=== PATIENT | male | born 1940 | race Caucasian/White ===

== ENCOUNTER → 2020-02-18 13:11 | Outpatient (CLI) | payer OTHER, SELFPAY ==
--- NOTE | 2020-02-18 | DI.CT.S_ITS ---
PROCEDURE: CT ABDOMEN PELVIS WO/W CON INDICATIONS: Retention of urine, unspecified TECHNIQUE: Optional 5 mm thick noncontrast images acquired from the diaphragm to the symphysis pubis. After the administration of intravenous contrast, 5 mm thick images acquired from the diaphragm to the symphysis pubis after a 10-minute delay. 2 mm thick coronal and sagittal reformats were then performed of the kidneys and ureters. For radiation dose reduction, the following was used: automated exposure control, adjustment of mA and/or kV according to patient size. COMPARISON: None. FINDINGS: Image quality: Excellent. Lung bases: Lung bases are clear. Heart size is normal. Urinary system: Both kidneys are normal in size, without hydronephrosis or nephrolithiasis on pre-contrast images. No perinephric fat stranding. There is normal bilateral renal enhancement. Renal calyces appear normal in morphology when filled with contrast. Opacified portions of both ureters demonstrate normal caliber. Bladder wall thickness is normal. No calcified bladder stones. Other solid organs: Liver is normal in size and enhancement. Gallbladder appears normal . Biliary system is non dilated. Pancreas enhances normally. Spleen is normal in size and enhancement. No adrenal nodules. Peritoneum and bowel: Bowel loops demonstrate normal wall thickness and caliber. No free fluid or air. Nodes and vessels: No retroperitoneal or mesenteric adenopathy by size criteria. Aorta and inferior vena cava are normal in size. Abdominal wall: No ventral hernias. Pelvis: No pathologic free pelvic fluid. No inguinal hernias or adenopathy. The bladder is urine filled but not distended, having maximal AP and transverse dimensions of 9.4 x 7.7 cm and craniocaudad dimension up to 9.7 cm. Bones: No suspicious bony lesions. No vertebral body compression fractures. IMPRESSION: No hydronephrosis or nephrolithiasis is found. Maximal bladder dimensions are currently 9.4 x 7.7 x 9.7 cm. Bladder trabeculation is not seen. The prostate gland does not appear enlarged. No underlying neoplasm is suspected. Dictated by: Peter Toussaint M.D. on 02/18/2020 at 16:25 Approved by: Peter Toussaint M.D. on 02/18/2020 at 16:31
[2020-02-18 13:46] LABS: Blood Urea Nitrogen 15 mg/dL (9-20); Calcium 10.1 mg/dL (8.4-10.2); Carbon Dioxide 29 mmol/L (22-32); Chloride 105 mmol/L (98-107); Estimated Glomerular Filt Rate > 60.0 mL/min (>60); Glucose 106 mg/dL (80-110); HEMOLYSIS < 15 (0-50); Potassium 4.2 mmol/L (3.4-5.1); Sodium 139 mmol/L (137-145)
== END ==
PROVIDERS: Referring Provider Urology; Visit Provider Urology
DX: R31.0 Gross hematuria (principal); R33.9 Retention of urine, unspecified; N32.89 Other specified disorders of bladder; Z87.448 Personal history of other diseases of urinary system; Z85.038 Personal history of other malignant neoplasm of large intestine; Z92.3 Personal history of irradiation
CPT/HCPCS: 36415; 74178; 80048; Q9967